=== PATIENT | female | born 1985 | race Caucasian/White ===

== ENCOUNTER 2017-02-07 03:16 | Emergency (ER) | payer OTHER ==
[~2017-02-07] VITALS: Ht 165.1 cm; Wt 83.9 kg
[~2017-02-07 03:16] MED LIST: ALEVE220 M1 PO; AMOXICILLIN500 MG PO; CEPHALEXIN500 MG PO; IBUPROFEN600 MG PO; LEVOTHYROXINE25 MCG PO; LISINOPRIL5 MG PO; MACRODANTIN100 MG PO; NORCO 5-325 TA1 EACH PO; TRAMADOL HCL50 MG PO
[2017-02-07] MEDS ORDERED: NAPROXEN500 MG PO (03:38)
[2017-02-07] MEDS ORDERED: CYCLOBENZAPRINE10 MG PO (03:38)
== END 2017-02-07 03:46 | disposition home or self-care (01) ==
LOC: ED 03:16
DX: M54.5 Low back pain (principal); F17.200 Nicotine dependence, unspecified, uncomplicated; X50.0XXA Overexertion from strenuous movement or load, initial encounter; Z98.51 Tubal ligation status; Z79.899 Other long term (current) drug therapy
CPT/HCPCS: 99283

== ENCOUNTER 2017-08-19 23:44 | Emergency (ER) | payer OTHER ==
[~2017-08-19] VITALS: Ht 165.1 cm; Wt 90.7 kg
[~2017-08-19 23:44] MED LIST changes: +CYCLOBENZAPRINE10 MG PO; +NAPROXEN500 MG PO
[2017-08-20] MEDS ORDERED: PENICILLIN V P500 MG PO (00:03)
[2017-08-20] MEDS ORDERED: TRAMADOL HCL50 MG PO (00:03)
[2017-08-20] MEDS ORDERED: IBUPROFEN600 MG PO (11:29)
== END 2017-08-20 00:23 | disposition home or self-care (01) ==
LOC: ED 23:44
DX: K02.9 Dental caries, unspecified (principal); F17.200 Nicotine dependence, unspecified, uncomplicated; Z79.899 Other long term (current) drug therapy
CPT/HCPCS: 99283

== ENCOUNTER 2017-08-20 10:35 | Emergency (ER) | payer OTHER ==
[~2017-08-20] VITALS: Ht 165.1 cm; Wt 90.7 kg
[~2017-08-20 10:35] MED LIST changes: +PENICILLIN V P500 MG PO
[2017-08-20] MEDS ORDERED: IBUPROFEN600 MG PO (11:29)
== END 2017-08-20 12:01 | disposition home or self-care (01) ==
LOC: ED 10:35
DX: K04.7 Periapical abscess without sinus (principal); F17.200 Nicotine dependence, unspecified, uncomplicated; Z79.899 Other long term (current) drug therapy
CPT/HCPCS: 96372; 99283; J1885

== ENCOUNTER 2018-09-05 20:32 | Emergency (ER) | payer OTHER ==
[~2018-09-05] VITALS: Ht 165.1 cm; Wt 90.7 kg
[2018-09-05] MEDS ORDERED: TRAMADOL HCL50 MG PO (23:12)
[2018-09-05] MEDS ORDERED: ZOFRAN4 MG PO (23:12)
== END 2018-09-05 23:25 | disposition home or self-care (01) ==
LOC: ED 20:32
PROC: 0T9B70Z Drainage of Bladder with Drainage Device, Via Natural or Artificial Opening (ICD-10-PCS; principal; 2018-09-05)
DX: R10.31 Right lower quadrant pain (principal); R10.32 Left lower quadrant pain; R10.11 Right upper quadrant pain; R10.12 Left upper quadrant pain; F17.200 Nicotine dependence, unspecified, uncomplicated; Z90.49 Acquired absence of other specified parts of digestive tract
CPT/HCPCS: 51701; 74177; 80053; 81001; 83690; 84703; 85025; 99284-25; J1170; J2405; J7030; Q9967

== ENCOUNTER 2018-10-15 15:01 | Emergency (ER) | payer OTHER ==
[~2018-10-15] VITALS: Ht 165.1 cm; Wt 90.7 kg
[~2018-10-15 15:01] MED LIST changes: +ZOFRAN4 MG PO
[2018-10-15] MEDS ORDERED: CYCLOBENZAPRINE10 MG PO (16:17)
== END 2018-10-15 16:31 | disposition home or self-care (01) ==
LOC: ED 15:01
DX: S13.9XXA Sprain of joints and ligaments of unspecified parts of neck, initial encounter (principal); W18.30XA Fall on same level, unspecified, initial encounter; F17.200 Nicotine dependence, unspecified, uncomplicated
CPT/HCPCS: 72040; 99283-25

== ENCOUNTER 2020-06-01 01:09 | Emergency (ER) | payer OTHER ==
[~2020-06-01] VITALS: Ht 165.1 cm; Wt 86.2 kg
[2020-06-01] MEDS ORDERED: PERCOCET 5-3251 EACH PO (01:17)
[2020-06-01] MEDS ORDERED: AMOXICILLIN500 MG PO (01:17)
[2020-06-01] MEDS ORDERED: NORCO 5-325 TA1 EACH PO (01:28)
[2020-06-01] MEDS ORDERED: CLINDAMYCIN HC300 MG PO (01:28)
--- OUTSIDE RECORDS SUMMARY | 2020-06-01 01:41 | XMS ---
PreManage Notification: COLTEN SHIN [employer] Events No recent Security Events currently on file CRITERIA MET - [facility] - 2 Visits in 30 Days CARE PROVIDERS There are no care providers on record at this time. Claritza has no Care Guidelines for this patient. Connie VISIT COUNT (12 MO.) 1 Steve Chávez [address] [place] [address] TOTAL 2 NOTE: Visits indicate total known visits. ED/C VISIT TRACKING (12 MO.) [facility] COMPLAINT: - DENTAL PAIN 05/30/2020 21:44 Steve ZELAYA TYPE: Emergency COMPLAINT: - Toothache INPATIENT VISIT TRACKING (12 MO.) No inpatient visits to display in this time frame [id number]
== END 2020-06-01 01:41 | disposition home or self-care (01) ==
LOC: ED 01:09
DX: K04.7 Periapical abscess without sinus (principal); F17.200 Nicotine dependence, unspecified, uncomplicated; Z88.1 Allergy status to other antibiotic agents
CPT/HCPCS: 99282

== ENCOUNTER 2020-06-01 07:09 | Emergency (ER) | payer OTHER ==
[~2020-06-01] VITALS: Ht 165.1 cm; Wt 103.1 kg
[~2020-06-01 07:09] MED LIST changes: +CLINDAMYCIN HC300 MG PO; +PERCOCET 5-3251 EACH PO
--- OUTSIDE RECORDS SUMMARY | 2020-06-01 07:12 | XMS ---
PreManage Notification: COLTEN SHIN Security Facilities Assistant Events No recent Security Events currently on file CRITERIA MET - [facility] - 2 Visits in 30 Days CARE PROVIDERS There are no care providers on record at this time. Claritza has no Care Guidelines for this patient. Connie VISIT COUNT (12 MO.) 1 [address] TOTAL 3 NOTE: Visits indicate total known visits. ED/C VISIT TRACKING (12 MO.) [facility]2020 07[facility] COMPLAINT: - DENTAL PROBLEM 06/01/2020 01:10 NATACHA Uriostegui TYPE: Emergency COMPLAINT: - DENTAL PAIN 05/30/2020 21:44 Steve ZELAYA TYPE: Emergency COMPLAINT: - Toothache INPATIENT VISIT TRACKING (12 MO.) No inpatient visits to display in this time frame [id number]
== END 2020-06-01 10:58 | disposition home or self-care (01) ==
LOC: ED 07:09
DX: K04.7 Periapical abscess without sinus (principal); F17.200 Nicotine dependence, unspecified, uncomplicated; Z88.1 Allergy status to other antibiotic agents
CPT/HCPCS: 10160; 70487; 80048; 85025; 99283-25; J1100; J1170; J1885; J3490; Q9967

== ENCOUNTER 2020-06-03 11:34 | Emergency (ER) | payer OTHER ==
[~2020-06-03] VITALS: Ht 165.1 cm; Wt 86.2 kg
--- OUTSIDE RECORDS SUMMARY | 2020-06-03 11:38 | XMS ---
PreManage Notification: COLTEN SHIN Security [employer] Events No recent Security Events currently on file CRITERIA MET - [facility] - 2 Visits in 30 Days CARE PROVIDERS There are no care providers on record at this time. Claritza has no Care Guidelines for this patient. Connie VISIT COUNT (12 MO.) 1 Steve Sarkar Suni 3 [facility] TOTAL 4 NOTE: Visits indicate total known visits. ED/C VISIT TRACKING (12 MO.) 06/03/2020 11:36 [facility] Fil[facility]a OR TYPE: Emergency COMPLAINT: - SWELLING IN MOUTH, EAR, JAW 06/01/2020 07:10 NATACHA Toscano OR TYPE: Emergency COMPLAINT: - DENTAL PROBLEM 06/01/2020 01:10 NATACHA Toscano OR TYPE: Emergency COMPLAINT: - DENTAL PAIN 05/30/2020 21:44 Steve ZELAYA TYPE: Emergency COMPLAINT: - Toothache INPATIENT VISIT TRACKING (12 MO.) No inpatient visits to display in this time frame [id number]
== END 2020-06-03 13:30 | disposition home or self-care (01) ==
LOC: ED 11:34
DX: K04.7 Periapical abscess without sinus (principal); F17.200 Nicotine dependence, unspecified, uncomplicated; Z88.1 Allergy status to other antibiotic agents
CPT/HCPCS: 41800; 99282-25; J1100; J1170; J1885; J3490; J7030

== ENCOUNTER 2021-07-11 11:13 | Emergency (ER) | payer SELFPAY ==
[~2021-07-11] VITALS: Ht 165.1 cm; Wt 90.7 kg
[2021-07-11] MEDS ORDERED: HYDROCODON-ACE1 EA10 PO (12:38)
== END 2021-07-11 13:14 | disposition home or self-care (01) ==
LOC: ED 11:13
DX: S93.402A Sprain of unspecified ligament of left ankle, initial encounter (principal); S50.01XA Contusion of right elbow, initial encounter; F17.200 Nicotine dependence, unspecified, uncomplicated; Z88.1 Allergy status to other antibiotic agents; X50.1XXA Overexertion from prolonged static or awkward postures, initial encounter
CPT/HCPCS: 73080; 73610; 90471; 90715; 99283-25; A9270

== ENCOUNTER 2022-02-11 15:45 | Emergency (ER) | payer OTHER ==
[~2022-02-11] VITALS: Ht 165.1 cm; Wt 103.9 kg
[~2022-02-11 15:45] MED LIST changes: +HYDROCODON-ACE1 EA10 PO
[2022-02-11] MEDS ORDERED: CLEOCIN HCL300 MG PO (16:33)
[2022-02-11] MEDS ORDERED: HYDROCODON-ACE1 EA10 PO (16:34)
== END 2022-02-11 16:45 | disposition home or self-care (01) ==
LOC: ED 15:45
DX: K04.7 Periapical abscess without sinus (principal); F17.200 Nicotine dependence, unspecified, uncomplicated; Z88.1 Allergy status to other antibiotic agents
CPT/HCPCS: 99282